=== PATIENT | female | born 1945 | race American Indian/Alaskan Native ===

== ENCOUNTER 2017-10-30 03:04 | Emergency (ER) | payer OTHER ==
[2017-10-30] VITALS (7 sets, daily range): BP systolic 130–233; BP diastolic 72–124
[~2017-10-30] VITALS: Ht 157.5 cm; Wt 56.7 kg
[2017-10-30] MEDS ORDERED: NORCO 5MG PO STA (03:22)
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
--- NOTE | 2017-10-30 03:32 | NUR ---
BEDPAN PATIENT REQUESTING TO USE THE BEDPAN TO VOID ASSISTED TO [facility] RAD IN DEPARTMENT, READY TO TRANSFER PATIENT FOR SCAN EXPLAINED PATIENT IS USING THE BEDPAN AND THEN SHE WILL BE READY.
[2017-10-30] MEDS ORDERED: NORCO 5MG PO ONE (03:35)
[2017-10-30] MEDS ORDERED: CATAPRES ONE (03:41)
[2017-10-30] MEDS ORDERED: CATAPRES PO STA (03:41)
--- NOTE | 2017-10-30 03:45 | NUR ---
RAD PATIENT TRANSFERRED TO [facility] VIA STRETCHER ON RA
--- NOTE | 2017-10-30 03:52 | NUR ---
NEPHEW BROUGHT INTO ER BY [facility] TO BE WITH AUNT. DENIES NEEDS OR QUESTIONS AT THIS TIME.
[2017-10-30] MEDS ORDERED: NITROSTAT SL PRN (04:00)
--- NOTE | 2017-10-30 04:04 | NUR ---
BACK FROM CT RECONNECTED TO BEDSIDE MONITOR
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
--- NOTE | 2017-10-30 04:21 | NUR ---
XRAY RESULTS DR DIANA NOTIFIED THAT XRAY RESULTS ARE AVAILABLE.
--- NOTE | 2017-10-30 04:50 | NUR ---
DISCHARGE PATIENT DISCHARGED. SPOKE WITH PATIENT'S NEPHEW, ASKED "DO YOU HAVE A [facility]?" CALLED [facility], STATED THEY COULD TRANSPORT PATIENT AND PATIENT NEPHEW TO [place] FOR $125. RELAYED INFORMATION TO PATIENT NEPHEW, ACCEPTED RATE. STATES HE WILL ARRIVE IN 20 MINUTES TO TAKE PATIENT AND NEPHEW TO [place].
== END 2017-10-30 04:50 | disposition home or self-care (01) ==
LOC: ER 03:04
DX: S62.316A Displaced fracture of base of fifth metacarpal bone, right hand, initial encounter for closed fracture (principal); S62.320A Displaced fracture of shaft of second metacarpal bone, right hand, initial encounter for closed fracture; S52.611A Displaced fracture of right ulna styloid process, initial encounter for closed fracture; S70.11XA Contusion of right thigh, initial encounter; E11.9 Type 2 diabetes mellitus without complications; R03.0 Elevated blood-pressure reading, without diagnosis of hypertension; Z86.73 Personal history of transient ischemic attack (TIA), and cerebral infarction without residual deficits; V49.88XA Car occupant (driver) (passenger) injured in other specified transport accidents, initial encounter; Y93.89 Activity, other specified; Y92.89 Other specified places as the place of occurrence of the external cause; Y99.8 Other external cause status
CPT/HCPCS: 29125; 73552; 99284; 73110-RT; 73550-RT